=== PATIENT | female | born 1950 | race African-American/Black ===

== ENCOUNTER 2023-01-20 10:49 | Inpatient (IN) | payer MEDICARE, MEDICAID ==
[~2023-01-20] VITALS: Ht 165.1 cm; Wt 63.5 kg
[2023-01-20] VITALS (20 sets, daily range): BP systolic 105–186; BP diastolic 40–77
[~2023-01-20 10:49] MED LIST: ETOMIDATE 2MG/ML 10ML VIAL IV ONE; SODIUM CHLORIDE 0.9% 10ML VIAL ONE; VECURONIUM BROMIDE 10 MG/VIAL IV ONE
[2023-01-20] MEDS ORDERED: ONDANSETRON HCL 4MG/2ML INJ IV STA (11:33)
[2023-01-20 12:26] LABS: HEMATOCRIT. 31.4 % (36.0-48.0); HEMOGLOBIN. 9.8 g/dL (12.0-16.0); MEAN CORPUSCULAR HEMOGLOBIN 19.4 pg (28.0-32.0); MEAN CORPUSCULAR VOLUME 62.3 fL (81.0-99.0); MEAN PLATELET VOLUME 8.8 fl (7.4-10.4); PLATELET 238 x1000/uL (130-400); RED BLOOD CELL COUNT 5.04 mill/uL (4.2-5.4); RED CELL DISTRIBUTION WIDTH 16.8 % (11.6-14.6)
[2023-01-20 12:34] LABS: CHLORIDE 109 mEq/L (98-107)
[2023-01-20] MEDS ORDERED: LEVETIRACETAM 1000MG PREMIX 100 ML IV ONE (12:45)
[2023-01-20] MEDS ORDERED: DEXAMETHASONE 10 MG/ML VIAL IV ONE (12:45)
[2023-01-20 12:49] LABS: ETHANOL BLOOD < 10 mg/dL
[2023-01-20] MEDS ORDERED: MANNITOL 20% 350 ML IV NR (13:00)
[2023-01-20] MEDS ORDERED: MIDAZOLAM HCL 100 MG in DEXT 5% WATER 80 ML IV ONE ×2 (13:00→14:45)
[2023-01-20] MEDS ORDERED: MIDAZOLAM HCL 100 MG in SODIUM CHLORIDE 0.9% 100 ML IV NR (13:15)
[2023-01-20 13:26] LABS: NUCLEATED RED BLOOD CELLS 1 /100 WBC
[2023-01-20 13:27] LABS: PLATELET ESTIMATE NORMAL
[2023-01-20] MEDS ORDERED: NALOXONE HCL 0.4MG/ML VIAL IV PRN (13:30)
[2023-01-20] MEDS ORDERED: NICARDIPINE 40MG/200ML PREMIX 200 ML IV PRN (13:30)
[2023-01-20] MEDS ORDERED: MORPHINE SULFATE 2 MG/ML CPJ (NOT FOR IM USE) IV PRN ×2 (13:30→17:30)
[2023-01-20] MEDS ORDERED: NICARDIPINE 100 MG in SODIUM CHLORIDE 0.9% 60 ML IV PRN ×5 (13:30→19:15)
[2023-01-20 14:02] LABS: PROTHROMBIN TIME 10.6 sec (9.6-11.0)
[2023-01-20] MEDS ORDERED: ONDANSETRON HCL 4MG/2ML INJ IV PRN (14:30)
[2023-01-20] MEDS ORDERED: POTASSIUM CHLORIDE INJ 40 MEQ in DEXT 5% WATER 250 ML IV SCH (14:30)
[2023-01-20] MEDS ORDERED: BISACODYL 10MG SUPP PR SCH (14:30)
[2023-01-20] MEDS ORDERED: KCL 20MEQ/100ML X 2 FOR TOTAL KCL 40MEQ/200ML IV SCH (15:00)
[2023-01-20] MEDS ORDERED: THROMBIN (BOVINE) 5000 UNITS/VIAL TOP ONE (15:35)
[2023-01-20] MEDS ORDERED: LIDOCAINE HCL 1%/EPI 1:200,000 30 ML VIAL ONE (15:35)
[2023-01-20] MEDS ORDERED: GENTAMICIN SULF 40MG/ML 2ML VIAL ONE (15:36)
[2023-01-20] MEDS ORDERED: BACITRACIN 15GM TUBE TOP ONE (15:36)
[2023-01-20] MEDS: PIPERACILLIN/TAZOBACTAM 3.375 G in DEXTROSE 5% WATER 50 ML IV SCH ×2 (15:37→22:58)
[2023-01-20] MEDS ORDERED: IOHEXOL-300 100 ML BOTTLE ONE (15:37)
[2023-01-20] MEDS ORDERED: VECURONIUM BROMIDE 10 MG/VIAL IV ONE (17:02)
[2023-01-20] MEDS ORDERED: PROPOFOL 200MG/20ML VIAL IV ONE (17:28)
[2023-01-20] MEDS ORDERED: MIDAZOLAM HCL 2 MG/2 ML VIAL ONE (17:32)
[2023-01-20] MEDS ORDERED: FENTANYL CITRATE/PF 50MCG/ML 2ML VIAL ONE (17:32)
[2023-01-20] MEDS ORDERED: PROPOFOL 10MG/ML 100ML 100 ML IV PRN (19:15)
[2023-01-20] MEDS: NICARDIPINE 100 MG in SODIUM CHLORIDE 0.9% 60 ML IV PRN (20:15)
[2023-01-20] MEDS: DEXAMETHASONE 4MG/ML 1ML VIAL IV SCH (20:16)
[2023-01-20] MEDS: PROPOFOL 10MG/ML 100ML 100 ML IV PRN (20:16)
[2023-01-20] MEDS: DEXT 5%/LACTATED RINGERS 1,000 ML IV SCH (20:17)
[2023-01-20 20:22] LABS: BG BASE EXCESS -1.1 mmol/L (-2.0-2.0); BG CARBOXYHEMOGLOBIN 0.7 % (0.5-1.5); BG DEOXYHEMOGLOBIN 3.1 % (0.0-5.0); BG FRACTION INSPIRED OXYGEN 40; BG HCO3 ACT 23.1 mmol/L (22.0-26.0); BG METHEMOGLOBIN 0.2 % (0.0-1.5); BG OXYGEN SATURATION 96.9 % (92.0-98.5); BG PCO2 36.5 mmHg (35.0-45.0); BG PH 7.419 (7.350-7.450); BG PO2 93.9 mmHg (75.0-100.0); BG SAMPLE SITE LEFT RADIAL; BG VENT MODE VENT - AC
[2023-01-20] MEDS ORDERED: LEVETIRACETAM 500MG PREMIX 100 ML IV SCH (21:00)
[2023-01-20] MEDS ORDERED: CEFAZOLIN 1000MG PREMIX 50 ML IV SCH (22:00)
[2023-01-21] VITALS (95 sets, daily range): BP systolic 106–149; BP diastolic 42–70
[2023-01-21] MEDS: DEXAMETHASONE 4MG/ML 1ML VIAL IV SCH ×5 (00:11→23:45)
[2023-01-21] MEDS: PROPOFOL 10MG/ML 100ML 100 ML IV PRN ×5 (02:31→23:45)
[2023-01-21 05:23] LABS: CHLORIDE 110 mEq/L (98-107)
[2023-01-21 05:33] LABS: HEMATOCRIT. 30.4 % (36.0-48.0); HEMOGLOBIN. 9.8 g/dL (12.0-16.0); MEAN CORPUSCULAR HEMOGLOBIN 19.7 pg (28.0-32.0); MEAN CORPUSCULAR VOLUME 61.1 fL (81.0-99.0); MEAN PLATELET VOLUME 8.9 fl (7.4-10.4); PLATELET 257 x1000/uL (130-400); RED BLOOD CELL COUNT 4.98 mill/uL (4.2-5.4); RED CELL DISTRIBUTION WIDTH 16.9 % (11.6-14.6)
[2023-01-21] MEDS: PIPERACILLIN/TAZOBACTAM 3.375 G in DEXTROSE 5% WATER 50 ML IV SCH ×3 (06:13→22:29)
[2023-01-21 08:41] LABS: BG BASE EXCESS -0.6 mmol/L (-2.0-2.0); BG DEOXYHEMOGLOBIN 1.7 % (0.0-5.0); BG FRACTION INSPIRED OXYGEN 40; BG HCO3 ACT 22.6 mmol/L (22.0-26.0); BG METHEMOGLOBIN 0.4 % (0.0-1.5); BG OXYGEN SATURATION 98.3 % (92.0-98.5); BG OXYHEMOGLOBIN 97.9 % (94.0-97.0); BG PH 7.467 (7.350-7.450); BG PO2 141.4 mmHg (75.0-100.0); BG SAMPLE SITE ALINE; BG TOTAL HEMOGLOBIN 10.2 g/dL (12.0-18.0); BG VENT MODE VENT - AC
[2023-01-21] MEDS: PANTOPRAZOLE SODIUM 40 MG/VIAL IV SCH (09:55)
[2023-01-21] MEDS: LEVETIRACETAM 500MG PREMIX 100 ML IV SCH ×2 (09:55→22:29)
[2023-01-21 11:28] LABS: PLATELET ESTIMATE NORMAL
[2023-01-21] MEDS ORDERED: POTASSIUM CHLORIDE INJ 40 MEQ in DEXT 5% WATER 250 ML IV ONE (11:30)
[2023-01-21] MEDS: KCL 20MEQ/100ML X 2 FOR TOTAL KCL 40MEQ/200ML IV SCH ×2 (12:19→15:45)
[2023-01-21] MEDS: NICARDIPINE 100 MG in SODIUM CHLORIDE 0.9% 60 ML IV PRN ×2 (17:55→23:45)
[2023-01-21] MEDS: DEXT 5%/LACTATED RINGERS 1,000 ML IV SCH ×2 (17:56→22:29)
[2023-01-22] VITALS (97 sets, daily range): BP systolic 88–148; BP diastolic 41–171
[2023-01-22 05:37] LABS: HEMATOCRIT. 29.3 % (36.0-48.0); HEMOGLOBIN. 9.3 g/dL (12.0-16.0); MEAN CORPUSCULAR HEMOGLOBIN 19.5 pg (28.0-32.0); MEAN CORPUSCULAR VOLUME 61.4 fL (81.0-99.0); MEAN PLATELET VOLUME 9.2 fl (7.4-10.4); PLATELET 260 x1000/uL (130-400); RED BLOOD CELL COUNT 4.78 mill/uL (4.2-5.4); RED CELL DISTRIBUTION WIDTH 17.1 % (11.6-14.6)
[2023-01-22 05:41] LABS: CHLORIDE 108 mEq/L (98-107)
[2023-01-22] MEDS: PROPOFOL 10MG/ML 100ML 100 ML IV PRN ×3 (06:00→18:25)
[2023-01-22] MEDS: PIPERACILLIN/TAZOBACTAM 3.375 G in DEXTROSE 5% WATER 50 ML IV SCH ×3 (07:03→21:24)
[2023-01-22] MEDS: DEXAMETHASONE 4MG/ML 1ML VIAL IV SCH ×3 (07:03→17:18)
[2023-01-22] MEDS: LEVETIRACETAM 500MG PREMIX 100 ML IV SCH ×2 (08:14→21:24)
[2023-01-22] MEDS: PANTOPRAZOLE SODIUM 40 MG/VIAL IV SCH (08:14)
[2023-01-22 09:59] LABS: PLATELET ESTIMATE NORMAL
[2023-01-22] MEDS ORDERED: DEXTROSE 50% WATER 50ML SYRINGE IV PRN (11:00)
[2023-01-22] MEDS: BLOOD SUGAR DIAGNOSTIC STRIP TEST SCH ×3 (11:13→21:24)
[2023-01-22] MEDS: LACTATED RINGERS 1,000 ML IV SCH (11:20)
[2023-01-22] MEDS: INSULIN LISPRO 100 UNITS/ML SUBCUT SCH ×3 (11:20→21:24)
[2023-01-22] MEDS: NICARDIPINE 100 MG in SODIUM CHLORIDE 0.9% 60 ML IV PRN (13:31)
[2023-01-23] VITALS (97 sets, daily range): BP systolic 96–163; BP diastolic 40–71
[2023-01-23] MEDS: NICARDIPINE 100 MG in SODIUM CHLORIDE 0.9% 60 ML IV PRN ×3 (00:11→18:25)
[2023-01-23] MEDS: PROPOFOL 10MG/ML 100ML 100 ML IV PRN ×3 (05:10→20:23)
[2023-01-23] MEDS: LACTATED RINGERS 1,000 ML IV SCH ×2 (05:11→20:23)
[2023-01-23 05:30] LABS: BASOPHILS % 0.3 % (0.0-2.0); HEMATOCRIT. 29.2 % (36.0-48.0); HEMOGLOBIN. 9.5 g/dL (12.0-16.0); LYMPHOCYTES % 8.7 % (20.0-50.0); MEAN CORPUSCULAR VOLUME 61.3 fL (81.0-99.0); MEAN PLATELET VOLUME 9.1 fl (7.4-10.4); MONOCYTES % 3.2 % (2.0-8.0); NEUTROPHILS % 87.8 % (40.0-76.0); PLATELET 263 x1000/uL (130-400); RED BLOOD CELL COUNT 4.76 mill/uL (4.2-5.4); RED CELL DISTRIBUTION WIDTH 17.1 % (11.6-14.6)
[2023-01-23 05:40] LABS: CHLORIDE 112 mEq/L (98-107)
[2023-01-23] MEDS: BLOOD SUGAR DIAGNOSTIC STRIP TEST SCH ×4 (06:40→20:12)
[2023-01-23] MEDS: PIPERACILLIN/TAZOBACTAM 3.375 G in DEXTROSE 5% WATER 50 ML IV SCH ×3 (06:40→21:11)
[2023-01-23] MEDS: INSULIN LISPRO 100 UNITS/ML SUBCUT SCH ×4 (06:40→20:24)
[2023-01-23] MEDS: LEVETIRACETAM 500MG PREMIX 100 ML IV SCH ×2 (09:17→20:24)
[2023-01-23] MEDS: PANTOPRAZOLE SODIUM 40 MG/VIAL IV SCH (09:17)
[2023-01-23] MEDS: LOSARTAN POTASSIUM 100 MG TABLET PO SCH (18:23)
[2023-01-24] VITALS (93 sets, daily range): BP systolic 92–166; BP diastolic 41–69
[2023-01-24] MEDS: PROPOFOL 10MG/ML 100ML 100 ML IV PRN ×3 (04:59→22:25)
[2023-01-24] MEDS: PIPERACILLIN/TAZOBACTAM 3.375 G in DEXTROSE 5% WATER 50 ML IV SCH ×3 (05:00→22:17)
[2023-01-24 05:31] LABS: BASOPHILS % 0.1 % (0.0-2.0); HEMATOCRIT. 27.5 % (36.0-48.0); HEMOGLOBIN. 8.9 g/dL (12.0-16.0); LYMPHOCYTES % 10.1 % (20.0-50.0); MEAN CORPUSCULAR HEMOGLOBIN 19.8 pg (28.0-32.0); MEAN CORPUSCULAR VOLUME 61.3 fL (81.0-99.0); MEAN PLATELET VOLUME 8.9 fl (7.4-10.4); MONOCYTES % 4.7 % (2.0-8.0); NEUTROPHILS % 85.1 % (40.0-76.0); PLATELET 232 x1000/uL (130-400); RED BLOOD CELL COUNT 4.48 mill/uL (4.2-5.4)
[2023-01-24] MEDS: BLOOD SUGAR DIAGNOSTIC STRIP TEST SCH ×4 (06:23→21:42)
[2023-01-24] MEDS: INSULIN LISPRO 100 UNITS/ML SUBCUT SCH ×4 (06:24→20:40)
[2023-01-24 06:57] LABS: CHLORIDE 116 mEq/L (98-107)
[2023-01-24] MEDS: LOSARTAN POTASSIUM 100 MG TABLET PO SCH (08:11)
[2023-01-24] MEDS: LEVETIRACETAM 500MG PREMIX 100 ML IV SCH ×2 (08:11→20:36)
[2023-01-24] MEDS: PANTOPRAZOLE SODIUM 40 MG/VIAL IV SCH (08:11)
[2023-01-24] MEDS ORDERED: HYDRALAZINE HCL 100MG TABLET PO NR (08:45)
[2023-01-24] MEDS: HYDRALAZINE HCL 100MG TABLET PO SCH ×2 (13:45→22:17)
[2023-01-24] MEDS: SODIUM CHLORIDE 0.45% 1,000 ML IV SCH (13:55)
[2023-01-24] MEDS: NICARDIPINE 100 MG in SODIUM CHLORIDE 0.9% 60 ML IV PRN (18:52)
[2023-01-25] VITALS (91 sets, daily range): BP systolic 84–182; BP diastolic 42–69
[2023-01-25] MEDS: PIPERACILLIN/TAZOBACTAM 3.375 G in DEXTROSE 5% WATER 50 ML IV SCH (05:40)
[2023-01-25] MEDS: HYDRALAZINE HCL 100MG TABLET PO SCH ×3 (05:40→21:08)
[2023-01-25] MEDS: NICARDIPINE 100 MG in SODIUM CHLORIDE 0.9% 60 ML IV PRN ×2 (05:41→17:30)
[2023-01-25] MEDS: SODIUM CHLORIDE 0.45% 1,000 ML IV SCH ×2 (05:41→21:08)
[2023-01-25 05:42] LABS: BASOPHILS % 0.2 % (0.0-2.0); EOSINOPHILS % 0.1 % (0.0-5.0); HEMATOCRIT. 28.9 % (36.0-48.0); HEMOGLOBIN. 9.3 g/dL (12.0-16.0); LYMPHOCYTES % 18.1 % (20.0-50.0); MEAN CORPUSCULAR HEMOGLOBIN 19.7 pg (28.0-32.0); MEAN PLATELET VOLUME 8.5 fl (7.4-10.4); MONOCYTES % 5.8 % (2.0-8.0); NEUTROPHILS % 75.8 % (40.0-76.0); PLATELET 223 x1000/uL (130-400); RED BLOOD CELL COUNT 4.74 mill/uL (4.2-5.4); RED CELL DISTRIBUTION WIDTH 16.7 % (11.6-14.6)
[2023-01-25] MEDS: BLOOD SUGAR DIAGNOSTIC STRIP TEST SCH ×4 (05:42→21:00)
[2023-01-25] MEDS: INSULIN LISPRO 100 UNITS/ML SUBCUT SCH ×4 (05:42→21:00)
[2023-01-25 06:19] LABS: CHLORIDE 112 mEq/L (98-107)
[2023-01-25] MEDS: PANTOPRAZOLE SODIUM 40 MG/VIAL IV SCH (08:01)
[2023-01-25] MEDS: LEVETIRACETAM 500MG PREMIX 100 ML IV SCH ×2 (08:02→21:08)
[2023-01-25] MEDS: LOSARTAN POTASSIUM 100 MG TABLET PO SCH (08:02)
[2023-01-25] MEDS: PROPOFOL 10MG/ML 100ML 100 ML IV PRN ×2 (09:31→17:31)
[2023-01-25] MEDS ORDERED: POTASSIUM CHLORIDE 20MEQ TABLET SR PO NR (12:00)
[2023-01-25] MEDS: CLONIDINE 0.1MG TABLET PO SCH ×2 (13:08→21:08)
[2023-01-26] VITALS (99 sets, daily range): BP systolic 76–168; BP diastolic 40–77
[2023-01-26] MEDS: PROPOFOL 10MG/ML 100ML 100 ML IV PRN ×3 (03:32→18:47)
[2023-01-26] MEDS: INSULIN LISPRO 100 UNITS/ML SUBCUT SCH ×3 (05:27→17:00)
[2023-01-26] MEDS: BLOOD SUGAR DIAGNOSTIC STRIP TEST SCH ×3 (05:27→17:13)
[2023-01-26] MEDS: HYDRALAZINE HCL 100MG TABLET PO SCH ×3 (05:42→21:17)
[2023-01-26] MEDS: CLONIDINE 0.1MG TABLET PO SCH (05:42)
[2023-01-26 05:50] LABS: BASOPHILS % 0.1 % (0.0-2.0); EOSINOPHILS % 0.6 % (0.0-5.0); HEMATOCRIT. 27.5 % (36.0-48.0); HEMOGLOBIN. 8.9 g/dL (12.0-16.0); LYMPHOCYTES % 18.7 % (20.0-50.0); MEAN CORPUSCULAR HEMOGLOBIN 19.8 pg (28.0-32.0); MEAN CORPUSCULAR VOLUME 61.5 fL (81.0-99.0); MEAN PLATELET VOLUME 8.4 fl (7.4-10.4); MONOCYTES % 5.3 % (2.0-8.0); NEUTROPHILS % 75.3 % (40.0-76.0); PLATELET 197 x1000/uL (130-400); RED BLOOD CELL COUNT 4.47 mill/uL (4.2-5.4); RED CELL DISTRIBUTION WIDTH 16.5 % (11.6-14.6)
[2023-01-26 07:42] LABS: CHLORIDE 112 mEq/L (98-107)
[2023-01-26] MEDS: LEVETIRACETAM 500MG PREMIX 100 ML IV SCH ×2 (08:09→20:41)
[2023-01-26] MEDS: LOSARTAN POTASSIUM 100 MG TABLET PO SCH (08:09)
[2023-01-26] MEDS: PANTOPRAZOLE SODIUM 40 MG/VIAL IV SCH (08:09)
[2023-01-26] MEDS: NICARDIPINE 100 MG in SODIUM CHLORIDE 0.9% 60 ML IV PRN (08:10)
[2023-01-26] MEDS: ACETAMINOPHEN 325MG TABLET PO PRN (13:16)
[2023-01-26] MEDS: CLONIDINE 0.2MG TABLET PO SCH ×2 (13:16→21:17)
[2023-01-26] MEDS: SODIUM CHLORIDE 0.45% 1,000 ML IV SCH (14:58)
[2023-01-26] MEDS: SENNOSIDES/DOCUSATE SOD 8.6/50MG TABLET PO SCH (21:17)
[2023-01-27] VITALS (87 sets, daily range): BP systolic 74–163; BP diastolic 46–159
[2023-01-27] MEDS: INSULIN LISPRO 100 UNITS/ML SUBCUT SCH ×4 (00:35→17:34)
[2023-01-27] MEDS: PROPOFOL 10MG/ML 100ML 100 ML IV PRN ×2 (01:59→08:58)
[2023-01-27 05:42] LABS: BASOPHILS % 0.1 % (0.0-2.0); EOSINOPHILS % 0.7 % (0.0-5.0); HEMATOCRIT. 26.1 % (36.0-48.0); HEMOGLOBIN. 8.5 g/dL (12.0-16.0); MEAN CORPUSCULAR VOLUME 61.7 fL (81.0-99.0); MEAN PLATELET VOLUME 8.6 fl (7.4-10.4); MONOCYTES % 6.1 % (2.0-8.0); NEUTROPHILS % 78.1 % (40.0-76.0); PLATELET 183 x1000/uL (130-400); RED BLOOD CELL COUNT 4.23 mill/uL (4.2-5.4); RED CELL DISTRIBUTION WIDTH 16.1 % (11.6-14.6)
[2023-01-27] MEDS: CLONIDINE 0.2MG TABLET PO SCH ×3 (05:53→22:15)
[2023-01-27] MEDS: HYDRALAZINE HCL 100MG TABLET PO SCH ×3 (05:53→22:15)
[2023-01-27] MEDS: BLOOD SUGAR DIAGNOSTIC STRIP TEST SCH ×4 (06:00→17:34)
[2023-01-27 06:14] LABS: FERRITIN 233 ng/mL (10-291)
[2023-01-27 06:27] LABS: VITAMIN B12 SERUM 1236 pg/mL (211-911)
[2023-01-27 07:51] LABS: CHLORIDE 108 mEq/L (98-107)
[2023-01-27 08:08] LABS: TOTAL IRON BINDING CAPACITY 161 ug/dL (250-450)
[2023-01-27] MEDS: BISACODYL 5MG TABLET PO SCH (08:50)
[2023-01-27] MEDS: LOSARTAN POTASSIUM 100 MG TABLET PO SCH (08:56)
[2023-01-27] MEDS: POLYETHYLENE GLYCOL 3350 (17GM) 1 DOSE PACK PO SCH (08:56)
[2023-01-27] MEDS: PANTOPRAZOLE SODIUM 40 MG/VIAL IV SCH ×2 (08:56→20:26)
[2023-01-27] MEDS: LEVETIRACETAM 500MG PREMIX 100 ML IV SCH ×2 (08:56→20:26)
[2023-01-27] MEDS: SODIUM CHLORIDE 0.45% 1,000 ML IV SCH (08:57)
[2023-01-27] MEDS: SENNOSIDES/DOCUSATE SOD 8.6/50MG TABLET PO SCH (20:27)
[2023-01-27] MEDS: METOPROLOL TARTRATE 25MG TABLET NG SCH (20:27)
[2023-01-28] VITALS (77 sets, daily range): BP systolic 79–191; BP diastolic 42–112
[2023-01-28 05:28] LABS: BASOPHILS % 0.4 % (0.0-2.0); EOSINOPHILS % 0.8 % (0.0-5.0); HEMATOCRIT. 24.3 % (36.0-48.0); HEMOGLOBIN. 7.8 g/dL (12.0-16.0); LYMPHOCYTES % 15.4 % (20.0-50.0); MEAN CORPUSCULAR HEMOGLOBIN 19.9 pg (28.0-32.0); MEAN CORPUSCULAR VOLUME 61.8 fL (81.0-99.0); MEAN PLATELET VOLUME 8.9 fl (7.4-10.4); MONOCYTES % 7.2 % (2.0-8.0); NEUTROPHILS % 76.2 % (40.0-76.0); PLATELET 180 x1000/uL (130-400); RED BLOOD CELL COUNT 3.93 mill/uL (4.2-5.4); RED CELL DISTRIBUTION WIDTH 15.9 % (11.6-14.6)
[2023-01-28 05:35] LABS: CHLORIDE 107 mEq/L (98-107)
[2023-01-28] MEDS: CLONIDINE 0.2MG TABLET PO SCH ×3 (06:00→21:05)
[2023-01-28] MEDS: HYDRALAZINE HCL 100MG TABLET PO SCH ×3 (06:00→21:05)
[2023-01-28] MEDS: INSULIN LISPRO 100 UNITS/ML SUBCUT SCH ×5 (06:00→23:49)
[2023-01-28] MEDS: BLOOD SUGAR DIAGNOSTIC STRIP TEST SCH ×5 (06:00→23:49)
[2023-01-28 07:13] LABS: BG BASE EXCESS -1.8 mmol/L (-2.0-2.0); BG CARBOXYHEMOGLOBIN 0.9 % (0.5-1.5); BG DEOXYHEMOGLOBIN 2.1 % (0.0-5.0); BG FRACTION INSPIRED OXYGEN 30; BG HCO3 ACT 21.6 mmol/L (22.0-26.0); BG METHEMOGLOBIN 0.3 % (0.0-1.5); BG OXYGEN SATURATION 97.9 % (92.0-98.5); BG OXYHEMOGLOBIN 96.7 % (94.0-97.0); BG PEEP (cmH2O) 0 cmH2O; BG PH 7.461 (7.350-7.450); BG SAMPLE SITE ALINE; BG TOTAL HEMOGLOBIN 8.2 g/dL (12.0-18.0); BG VENT MODE VENT - AC/VC
[2023-01-28] MEDS: PANTOPRAZOLE SODIUM 40 MG/VIAL IV SCH ×2 (08:28→21:06)
[2023-01-28] MEDS: LEVETIRACETAM 500MG PREMIX 100 ML IV SCH ×2 (08:28→21:05)
[2023-01-28] MEDS: SODIUM CHLORIDE 0.45% 1,000 ML IV SCH ×2 (08:29→18:44)
[2023-01-28] MEDS: METOPROLOL TARTRATE 25MG TABLET NG SCH ×3 (09:00→21:10)
[2023-01-28] MEDS: BISACODYL 5MG TABLET PO SCH (09:00)
[2023-01-28] MEDS: LOSARTAN POTASSIUM 100 MG TABLET PO SCH (15:12)
[2023-01-28] MEDS: POLYETHYLENE GLYCOL 3350 (17GM) 1 DOSE PACK PO SCH (15:12)
[2023-01-28] MEDS ORDERED: LIDOCAINE HCL/EPINEPHRINE 1%-EPI 1:100,000 20 ML VIAL ONE (17:18)
[2023-01-28] MEDS ORDERED: ROCURONIUM BROMIDE 10MG/ML VIAL 5ML IV ONE (19:20)
[2023-01-28] MEDS: SENNOSIDES/DOCUSATE SOD 8.6/50MG TABLET PO SCH (22:38)
[2023-01-28] MEDS: ACETAMINOPHEN 325MG TABLET PO PRN (23:49)
[2023-01-29] VITALS (95 sets, daily range): BP systolic 93–157; BP diastolic 45–97
[2023-01-29 05:30] LABS: BASOPHILS % 0.3 % (0.0-2.0); EOSINOPHILS % 0.4 % (0.0-5.0); HEMATOCRIT. 27.6 % (36.0-48.0); HEMOGLOBIN. 8.7 g/dL (12.0-16.0); LYMPHOCYTES % 12.4 % (20.0-50.0); MEAN CORPUSCULAR HEMOGLOBIN 19.6 pg (28.0-32.0); MEAN CORPUSCULAR VOLUME 62.2 fL (81.0-99.0); MEAN PLATELET VOLUME 8.9 fl (7.4-10.4); NEUTROPHILS % 79.9 % (40.0-76.0); PLATELET 206 x1000/uL (130-400); RED BLOOD CELL COUNT 4.43 mill/uL (4.2-5.4); RED CELL DISTRIBUTION WIDTH 16.2 % (11.6-14.6)
[2023-01-29] MEDS: HYDRALAZINE HCL 100MG TABLET PO SCH ×3 (05:32→21:05)
[2023-01-29] MEDS: INSULIN LISPRO 100 UNITS/ML SUBCUT SCH ×4 (05:33→23:20)
[2023-01-29] MEDS: CLONIDINE 0.2MG TABLET PO SCH ×3 (05:33→21:05)
[2023-01-29] MEDS: BLOOD SUGAR DIAGNOSTIC STRIP TEST SCH ×4 (05:33→23:21)
[2023-01-29 05:46] LABS: PROTHROMBIN TIME 10.7 sec (9.6-11.0)
[2023-01-29 06:00] LABS: CHLORIDE 109 mEq/L (98-107)
[2023-01-29] MEDS: ACETAMINOPHEN 325MG TABLET PO PRN ×2 (06:04→20:13)
[2023-01-29] MEDS: POLYETHYLENE GLYCOL 3350 (17GM) 1 DOSE PACK PO SCH ×2 (09:00→13:14)
[2023-01-29] MEDS: BISACODYL 5MG TABLET PO SCH (09:00)
[2023-01-29] MEDS: LEVETIRACETAM 500MG PREMIX 100 ML IV SCH ×2 (09:31→20:12)
[2023-01-29] MEDS: PANTOPRAZOLE SODIUM 40 MG/VIAL IV SCH ×2 (09:31→20:12)
[2023-01-29] MEDS: METOPROLOL TARTRATE 25MG TABLET NG SCH ×2 (09:32→20:13)
[2023-01-29] MEDS: LOSARTAN POTASSIUM 100 MG TABLET PO SCH (09:32)
[2023-01-29] MEDS: SODIUM CHLORIDE 0.45% 1,000 ML IV SCH ×2 (09:34→23:21)
[2023-01-29] MEDS ORDERED: CEFAZOLIN 1000MG PREMIX 50 ML IV NR (11:00)
[2023-01-29] MEDS ORDERED: EPHEDRINE SULFATE 50MG/ML VIAL ONE (11:26)
[2023-01-29] MEDS ORDERED: PHENYLEPHRINE HCL 10 MG/ML 1ML (IV VIAL) IV ONE (11:26)
[2023-01-29] MEDS ORDERED: ROCURONIUM BROMIDE 10MG/ML VIAL 5ML IV ONE (11:26)
[2023-01-29] MEDS ORDERED: MIDAZOLAM HCL 5 MG/5 ML VIAL ONE (11:26)
[2023-01-29] MEDS ORDERED: PROPOFOL 200MG/20ML VIAL IV ONE (11:26)
[2023-01-29] MEDS ORDERED: SODIUM CHLORIDE 0.9% 10ML VIAL ONE (11:27)
[2023-01-29] MEDS ORDERED: MORPHINE SULFATE 2 MG/ML CPJ (NOT FOR IM USE) IV PRN (12:45)
[2023-01-29] MEDS ORDERED: NALOXONE HCL 0.4MG/ML VIAL IV PRN (12:45)
[2023-01-29] MEDS: SENNOSIDES/DOCUSATE SOD 8.6/50MG TABLET PO SCH (20:13)
[2023-01-30] VITALS (11 sets, daily range): BP systolic 97–125; BP diastolic 47–68
[2023-01-30] MEDS: INSULIN LISPRO 100 UNITS/ML SUBCUT SCH ×4 (05:34→23:22)
[2023-01-30] MEDS: BLOOD SUGAR DIAGNOSTIC STRIP TEST SCH ×4 (05:34→23:22)
[2023-01-30] MEDS: HYDRALAZINE HCL 100MG TABLET PO SCH ×3 (05:34→20:35)
[2023-01-30] MEDS: CLONIDINE 0.2MG TABLET PO SCH ×3 (05:34→20:35)
[2023-01-30 05:46] LABS: BASOPHILS % 0.1 % (0.0-2.0); EOSINOPHILS % 0.9 % (0.0-5.0); HEMATOCRIT. 25.6 % (36.0-48.0); HEMOGLOBIN. 8.1 g/dL (12.0-16.0); LYMPHOCYTES % 11.5 % (20.0-50.0); MEAN CORPUSCULAR HEMOGLOBIN 19.8 pg (28.0-32.0); MEAN CORPUSCULAR VOLUME 62.6 fL (81.0-99.0); MEAN PLATELET VOLUME 8.6 fl (7.4-10.4); MONOCYTES % 9.9 % (2.0-8.0); NEUTROPHILS % 77.6 % (40.0-76.0); PLATELET 235 x1000/uL (130-400); RED CELL DISTRIBUTION WIDTH 16.7 % (11.6-14.6)
[2023-01-30 07:05] LABS: CHLORIDE 108 mEq/L (98-107)
[2023-01-30] MEDS: BISACODYL 5MG TABLET PO SCH (09:00)
[2023-01-30] MEDS: LOSARTAN POTASSIUM 100 MG TABLET PO SCH (09:00)
[2023-01-30] MEDS: POLYETHYLENE GLYCOL 3350 (17GM) 1 DOSE PACK PO SCH (09:00)
[2023-01-30] MEDS: METOPROLOL TARTRATE 25MG TABLET NG SCH ×2 (09:00→20:34)
[2023-01-30] MEDS: PANTOPRAZOLE SODIUM 40 MG/VIAL IV SCH ×2 (09:16→20:34)
[2023-01-30] MEDS: LEVETIRACETAM 500MG PREMIX 100 ML IV SCH (09:16)
[2023-01-30] MEDS ORDERED: POTASSIUM CHLORIDE 20MEQ TABLET SR PO NR (12:30)
[2023-01-30] MEDS: RISPERIDONE 0.5MG TABLET PO SCH (13:38)
[2023-01-30] MEDS: SODIUM CHLORIDE 0.45% 1,000 ML IV SCH ×2 (17:30→18:39)
[2023-01-30] MEDS: SENNOSIDES/DOCUSATE SOD 8.6/50MG TABLET PO SCH (20:34)
[2023-01-30] MEDS: LEVETIRACETAM 500MG/5ML CUP PO SCH (20:35)
[2023-01-30] MEDS: ACETAMINOPHEN 325MG TABLET PO PRN (20:35)
[2023-01-31] VITALS (13 sets, daily range): BP systolic 87–120; BP diastolic 47–83
[2023-01-31] MEDS: BLOOD SUGAR DIAGNOSTIC STRIP TEST SCH ×4 (05:28→23:25)
[2023-01-31] MEDS: HYDRALAZINE HCL 100MG TABLET PO SCH ×3 (05:28→21:57)
[2023-01-31] MEDS: CLONIDINE 0.2MG TABLET PO SCH ×3 (05:28→21:57)
[2023-01-31] MEDS: INSULIN LISPRO 100 UNITS/ML SUBCUT SCH ×4 (05:29→23:25)
[2023-01-31] MEDS: METOPROLOL TARTRATE 25MG TABLET NG SCH ×2 (08:54→21:57)
[2023-01-31] MEDS: LOSARTAN POTASSIUM 100 MG TABLET PO SCH (08:55)
[2023-01-31] MEDS: LEVETIRACETAM 500MG/5ML CUP PO SCH ×2 (09:33→21:56)
[2023-01-31] MEDS: PANTOPRAZOLE SODIUM 40 MG/VIAL IV SCH ×2 (09:33→21:56)
[2023-01-31] MEDS: BISACODYL 5MG TABLET PO SCH (09:33)
[2023-01-31] MEDS: RISPERIDONE 0.5MG TABLET PO SCH (09:33)
[2023-01-31] MEDS: POLYETHYLENE GLYCOL 3350 (17GM) 1 DOSE PACK PO SCH (09:33)
[2023-01-31] MEDS: SODIUM CHLORIDE 0.45% 1,000 ML IV SCH (12:10)
[2023-01-31] MEDS: SENNOSIDES/DOCUSATE SOD 8.6/50MG TABLET PO SCH (21:57)
[2023-02-01] VITALS (12 sets, daily range): BP systolic 88–126; BP diastolic 46–64
[2023-02-01] MEDS: SODIUM CHLORIDE 0.45% 1,000 ML IV SCH ×2 (05:16→21:52)
[2023-02-01] MEDS: HYDRALAZINE HCL 100MG TABLET PO SCH ×3 (05:16→21:54)
[2023-02-01] MEDS: CLONIDINE 0.2MG TABLET PO SCH ×3 (05:17→21:53)
[2023-02-01] MEDS: BLOOD SUGAR DIAGNOSTIC STRIP TEST SCH ×4 (05:21→23:58)
[2023-02-01] MEDS: INSULIN LISPRO 100 UNITS/ML SUBCUT SCH ×3 (05:21→17:33)
[2023-02-01] MEDS: ACETAMINOPHEN 325MG TABLET PO PRN (05:22)
[2023-02-01] MEDS: POLYETHYLENE GLYCOL 3350 (17GM) 1 DOSE PACK PO SCH (09:00)
[2023-02-01] MEDS: LOSARTAN POTASSIUM 100 MG TABLET PO SCH (09:20)
[2023-02-01] MEDS: RISPERIDONE 0.5MG TABLET PO SCH (09:20)
[2023-02-01] MEDS: BISACODYL 5MG TABLET PO SCH (09:20)
[2023-02-01] MEDS: LEVETIRACETAM 500MG/5ML CUP PO SCH ×2 (09:20→21:52)
[2023-02-01] MEDS: METOPROLOL TARTRATE 25MG TABLET NG SCH ×2 (09:20→21:53)
[2023-02-01] MEDS: PANTOPRAZOLE SODIUM 40 MG/VIAL IV SCH ×2 (09:20→21:52)
[2023-02-01] MEDS: SENNOSIDES/DOCUSATE SOD 8.6/50MG TABLET PO SCH (21:53)
[2023-02-02] VITALS (12 sets, daily range): BP systolic 109–138; BP diastolic 31–93
[2023-02-02] MEDS: INSULIN LISPRO 100 UNITS/ML SUBCUT SCH ×4 (00:35→17:13)
[2023-02-02] MEDS: BLOOD SUGAR DIAGNOSTIC STRIP TEST SCH ×4 (05:53→23:59)
[2023-02-02] MEDS: HYDRALAZINE HCL 100MG TABLET PO SCH ×3 (05:54→21:41)
[2023-02-02] MEDS: CLONIDINE 0.2MG TABLET PO SCH ×3 (05:54→21:41)
[2023-02-02] MEDS: METOPROLOL TARTRATE 25MG TABLET NG SCH (09:00)
[2023-02-02] MEDS: LOSARTAN POTASSIUM 100 MG TABLET PO SCH (09:29)
[2023-02-02] MEDS: POLYETHYLENE GLYCOL 3350 (17GM) 1 DOSE PACK PO SCH (09:29)
[2023-02-02] MEDS: PANTOPRAZOLE SODIUM 40 MG/VIAL IV SCH ×2 (09:29→21:41)
[2023-02-02] MEDS: RISPERIDONE 0.5MG TABLET PO SCH (09:29)
[2023-02-02] MEDS: BISACODYL 5MG TABLET PO SCH (09:29)
[2023-02-02] MEDS: LEVETIRACETAM 500MG/5ML CUP PO SCH ×2 (09:47→21:41)
[2023-02-02] MEDS: SODIUM CHLORIDE 0.45% 1,000 ML IV SCH (13:42)
[2023-02-02 15:45] LABS: BASOPHILS % 0.6 % (0.0-2.0); EOSINOPHILS % 0.7 % (0.0-5.0); HEMATOCRIT. 26.3 % (36.0-48.0); HEMOGLOBIN. 8.5 g/dL (12.0-16.0); LYMPHOCYTES % 15.6 % (20.0-50.0); MEAN CORPUSCULAR HEMOGLOBIN 20.2 pg (28.0-32.0); MEAN CORPUSCULAR VOLUME 62.2 fL (81.0-99.0); MEAN PLATELET VOLUME 8.2 fl (7.4-10.4); MONOCYTES % 6.5 % (2.0-8.0); NEUTROPHILS % 76.6 % (40.0-76.0); PLATELET 302 x1000/uL (130-400); RED BLOOD CELL COUNT 4.22 mill/uL (4.2-5.4); RED CELL DISTRIBUTION WIDTH 16.9 % (11.6-14.6)
[2023-02-02 15:56] LABS: CHLORIDE 107 mEq/L (98-107)
[2023-02-02] MEDS: SENNOSIDES/DOCUSATE SOD 8.6/50MG TABLET PO SCH (21:41)
[2023-02-03] VITALS (12 sets, daily range): BP systolic 100–135; BP diastolic 54–100
[2023-02-03] MEDS: INSULIN LISPRO 100 UNITS/ML SUBCUT SCH ×4 (00:09→17:55)
[2023-02-03] MEDS: HYDRALAZINE HCL 100MG TABLET PO SCH ×3 (05:38→21:33)
[2023-02-03] MEDS: CLONIDINE 0.2MG TABLET PO SCH ×3 (05:38→21:33)
[2023-02-03] MEDS: BLOOD SUGAR DIAGNOSTIC STRIP TEST SCH ×3 (05:38→17:28)
[2023-02-03] MEDS: SODIUM CHLORIDE 0.45% 1,000 ML IV SCH ×2 (05:39→21:50)
[2023-02-03] MEDS: LOSARTAN POTASSIUM 100 MG TABLET PO SCH (08:27)
[2023-02-03] MEDS: RISPERIDONE 0.25MG TABLET PO SCH (08:27)
[2023-02-03] MEDS: BISACODYL 5MG TABLET PO SCH (08:27)
[2023-02-03] MEDS: POLYETHYLENE GLYCOL 3350 (17GM) 1 DOSE PACK PO SCH (08:27)
[2023-02-03] MEDS: LEVETIRACETAM 500MG/5ML CUP PO SCH ×2 (08:27→21:32)
[2023-02-03] MEDS: PANTOPRAZOLE SODIUM 40 MG/VIAL IV SCH ×2 (08:28→21:32)
[2023-02-03] MEDS: ACETAMINOPHEN 650MG/20.3ML UDC PO PRN (21:32)
[2023-02-03] MEDS: SENNOSIDES/DOCUSATE SOD 8.6/50MG TABLET PO SCH (21:33)
[2023-02-04] VITALS (12 sets, daily range): BP systolic 96–147; BP diastolic 45–74
[2023-02-04] MEDS: BLOOD SUGAR DIAGNOSTIC STRIP TEST SCH ×5 (00:25→23:29)
[2023-02-04] MEDS: INSULIN LISPRO 100 UNITS/ML SUBCUT SCH ×5 (00:40→23:39)
[2023-02-04] MEDS: CLONIDINE 0.2MG TABLET PO SCH ×3 (05:23→21:10)
[2023-02-04] MEDS: HYDRALAZINE HCL 100MG TABLET PO SCH ×3 (05:23→21:10)
[2023-02-04 07:01] LABS: BASOPHILS % 0.4 % (0.0-2.0); EOSINOPHILS % 1.5 % (0.0-5.0); HEMATOCRIT. 26.5 % (36.0-48.0); HEMOGLOBIN. 8.6 g/dL (12.0-16.0); LYMPHOCYTES % 14.7 % (20.0-50.0); MEAN CORPUSCULAR HEMOGLOBIN 20.7 pg (28.0-32.0); MEAN CORPUSCULAR VOLUME 63.3 fL (81.0-99.0); MEAN PLATELET VOLUME 8.2 fl (7.4-10.4); MONOCYTES % 8.4 % (2.0-8.0); PLATELET 253 x1000/uL (130-400); RED BLOOD CELL COUNT 4.18 mill/uL (4.2-5.4); RED CELL DISTRIBUTION WIDTH 17.1 % (11.6-14.6)
[2023-02-04 07:36] LABS: CHLORIDE 105 mEq/L (98-107)
[2023-02-04] MEDS: LOSARTAN POTASSIUM 100 MG TABLET PO SCH (08:25)
[2023-02-04] MEDS: LEVETIRACETAM 500MG/5ML CUP PO SCH ×2 (09:52→21:09)
[2023-02-04] MEDS: RISPERIDONE 0.25MG TABLET PO SCH (09:52)
[2023-02-04] MEDS: ACETAMINOPHEN 650MG/20.3ML UDC PO PRN ×2 (09:52→23:37)
[2023-02-04] MEDS: BISACODYL 5MG TABLET PO SCH (09:52)
[2023-02-04] MEDS: PANTOPRAZOLE SODIUM 40 MG/VIAL IV SCH ×2 (09:53→21:10)
[2023-02-04] MEDS: POLYETHYLENE GLYCOL 3350 (17GM) 1 DOSE PACK PO SCH (09:53)
[2023-02-04] MEDS: CEFTRIAXONE 1,000 MG in DEXTROSE 5% WATER 50 ML IV SCH (13:17)
[2023-02-04] MEDS: SODIUM CHLORIDE 0.45% 1,000 ML IV SCH (17:13)
[2023-02-04] MEDS: SENNOSIDES/DOCUSATE SOD 8.6/50MG TABLET PO SCH (21:10)
[2023-02-04 22:39] LABS: CLARITY URINE TURBID (CLEAR); COLOR URINE YELLOW (YELLOW); KETONES URINE NEGATIVE (NEGATIVE); LEUKOCYTE ESTERASE URINE 3+ (NEGATIVE); NITRITE URINE POSITIVE (NEGATIVE); OCCULT BLOOD URINE 1+ (NEGATIVE); PROTEIN URINE 1+ (NEGATIVE); SPECIFIC GRAVITY URINE 1.016 (1.005-1.030)
[2023-02-05] VITALS (18 sets, daily range): BP systolic 84–140; BP diastolic 47–69
[2023-02-05] MEDS: SODIUM CHLORIDE 0.45% 1,000 ML IV SCH ×2 (05:35→22:58)
[2023-02-05] MEDS: CLONIDINE 0.2MG TABLET PO SCH ×3 (05:35→22:00)
[2023-02-05] MEDS: HYDRALAZINE HCL 100MG TABLET PO SCH ×3 (05:35→22:00)
[2023-02-05] MEDS: BLOOD SUGAR DIAGNOSTIC STRIP TEST SCH ×3 (05:35→18:00)
[2023-02-05] MEDS: INSULIN LISPRO 100 UNITS/ML SUBCUT SCH ×3 (05:36→18:00)
[2023-02-05 06:38] LABS: BASOPHILS % 0.7 % (0.0-2.0); EOSINOPHILS % 0.5 % (0.0-5.0); HEMATOCRIT. 27.5 % (36.0-48.0); HEMOGLOBIN. 8.8 g/dL (12.0-16.0); LYMPHOCYTES % 11.3 % (20.0-50.0); MEAN CORPUSCULAR HEMOGLOBIN 20.4 pg (28.0-32.0); MEAN CORPUSCULAR VOLUME 63.5 fL (81.0-99.0); MEAN PLATELET VOLUME 8.5 fl (7.4-10.4); MONOCYTES % 6.8 % (2.0-8.0); NEUTROPHILS % 80.7 % (40.0-76.0); PLATELET 284 x1000/uL (130-400); RED BLOOD CELL COUNT 4.33 mill/uL (4.2-5.4); RED CELL DISTRIBUTION WIDTH 17.8 % (11.6-14.6)
[2023-02-05 08:20] LABS: CHLORIDE 106 mEq/L (98-107)
[2023-02-05] MEDS: BISACODYL 5MG TABLET PO SCH (09:00)
[2023-02-05] MEDS: RISPERIDONE 0.25MG TABLET PO SCH (09:27)
[2023-02-05] MEDS: POLYETHYLENE GLYCOL 3350 (17GM) 1 DOSE PACK PO SCH (09:27)
[2023-02-05] MEDS: PANTOPRAZOLE SODIUM 40 MG/VIAL IV SCH ×2 (09:27→22:22)
[2023-02-05] MEDS: LOSARTAN POTASSIUM 100 MG TABLET PO SCH (09:27)
[2023-02-05] MEDS: LEVETIRACETAM 500MG/5ML CUP PO SCH ×2 (09:27→22:21)
[2023-02-05] MEDS: CEFTRIAXONE 1,000 MG in DEXTROSE 5% WATER 50 ML IV SCH (13:03)
[2023-02-05] MEDS: SENNOSIDES/DOCUSATE SOD 8.6/50MG TABLET PO SCH (21:00)
[2023-02-06] VITALS (12 sets, daily range): BP systolic 83–133; BP diastolic 20–68
[2023-02-06] MEDS: INSULIN LISPRO 100 UNITS/ML SUBCUT SCH ×4 (02:15→17:41)
[2023-02-06] MEDS: BLOOD SUGAR DIAGNOSTIC STRIP TEST SCH ×4 (06:00→17:12)
[2023-02-06] MEDS: HYDRALAZINE HCL 100MG TABLET PO SCH ×3 (06:00→21:36)
[2023-02-06] MEDS: CLONIDINE 0.2MG TABLET PO SCH ×3 (06:00→21:41)
[2023-02-06] MEDS: LEVETIRACETAM 500MG/5ML CUP PO SCH ×2 (08:35→21:36)
[2023-02-06] MEDS: PANTOPRAZOLE SODIUM 40 MG/VIAL IV SCH ×2 (08:35→21:36)
[2023-02-06] MEDS: POLYETHYLENE GLYCOL 3350 (17GM) 1 DOSE PACK PO SCH (08:35)
[2023-02-06] MEDS: RISPERIDONE 0.25MG TABLET PO SCH (08:36)
[2023-02-06] MEDS: BISACODYL 5MG TABLET PO SCH (08:36)
[2023-02-06] MEDS: LOSARTAN POTASSIUM 100 MG TABLET PO SCH (09:00)
[2023-02-06] MEDS: CEFTRIAXONE 1,000 MG in DEXTROSE 5% WATER 50 ML IV SCH (12:11)
[2023-02-06] MEDS: SODIUM CHLORIDE 0.45% 1,000 ML IV SCH (17:42)
[2023-02-06] MEDS: SENNOSIDES/DOCUSATE SOD 8.6/50MG TABLET PO SCH (21:36)
[2023-02-07] VITALS (14 sets, daily range): BP systolic 90–131; BP diastolic 35–66
[2023-02-07] MEDS: INSULIN LISPRO 100 UNITS/ML SUBCUT SCH ×4 (00:34→17:11)
[2023-02-07] MEDS: BLOOD SUGAR DIAGNOSTIC STRIP TEST SCH ×4 (00:34→17:06)
[2023-02-07] MEDS: HYDRALAZINE HCL 100MG TABLET PO SCH ×3 (05:41→22:51)
[2023-02-07] MEDS: CLONIDINE 0.2MG TABLET PO SCH ×3 (05:42→22:52)
[2023-02-07] MEDS: SODIUM CHLORIDE 0.45% 1,000 ML IV SCH (05:42)
[2023-02-07 08:00] LABS: HEMATOCRIT 28.5 % (36.0-48.0); HEMOGLOBIN 9.2 g/dL (12.0-16.0); MEAN CORPUSCULAR VOLUME 62.3 fL (81.0-99.0); PLATELET 308 x1000/uL (130-400); RED BLOOD CELL COUNT 4.58 mill/uL (4.2-5.4); RED CELL DISTRIBUTION WIDTH 18.5 % (11.6-14.6)
[2023-02-07 08:41] LABS: CHLORIDE 103 mEq/L (98-107)
[2023-02-07 08:56] LABS: TOTAL IRON BINDING CAPACITY 205 ug/dL (250-450)
[2023-02-07] MEDS: POLYETHYLENE GLYCOL 3350 (17GM) 1 DOSE PACK PO SCH (09:00)
[2023-02-07] MEDS: BISACODYL 5MG TABLET PO SCH (09:00)
[2023-02-07] MEDS: RISPERIDONE 0.25MG TABLET PO SCH (09:01)
[2023-02-07] MEDS: LEVETIRACETAM 500MG/5ML CUP PO SCH ×2 (09:01→22:54)
[2023-02-07] MEDS: LOSARTAN POTASSIUM 100 MG TABLET PO SCH (09:01)
[2023-02-07] MEDS: PANTOPRAZOLE SODIUM 40 MG/VIAL IV SCH ×2 (09:02→22:49)
[2023-02-07] MEDS: CEFTRIAXONE 1,000 MG in DEXTROSE 5% WATER 50 ML IV SCH (12:17)
[2023-02-07] MEDS ORDERED: LACTULOSE 20G/30ML UDC PO PRN (14:45)
[2023-02-07] MEDS: FERROUS SULFATE 325MG TABLET PO SCH (17:03)
[2023-02-07 20:32] LABS: HEPATITIS B SURFACE ANTIGEN NEGATIVE
[2023-02-07] MEDS: SENNOSIDES/DOCUSATE SOD 8.6/50MG TABLET PO SCH (22:50)
[2023-02-08] VITALS (12 sets, daily range): BP systolic 112–136; BP diastolic 46–76
[2023-02-08] MEDS: BLOOD SUGAR DIAGNOSTIC STRIP TEST SCH ×4 (00:26→18:10)
[2023-02-08] MEDS: INSULIN LISPRO 100 UNITS/ML SUBCUT SCH ×4 (00:37→18:11)
[2023-02-08] MEDS: HYDRALAZINE HCL 100MG TABLET PO SCH ×3 (06:03→21:02)
[2023-02-08] MEDS: CLONIDINE 0.2MG TABLET PO SCH ×3 (06:04→21:02)
[2023-02-08 07:16] LABS: BASOPHILS % 0.7 % (0.0-2.0); EOSINOPHILS % 0.3 % (0.0-5.0); HEMATOCRIT. 27.1 % (36.0-48.0); HEMOGLOBIN. 8.8 g/dL (12.0-16.0); LYMPHOCYTES % 7.9 % (20.0-50.0); MEAN CORPUSCULAR VOLUME 61.7 fL (81.0-99.0); MEAN PLATELET VOLUME 8.1 fl (7.4-10.4); MONOCYTES % 8.2 % (2.0-8.0); NEUTROPHILS % 82.9 % (40.0-76.0); PLATELET 333 x1000/uL (130-400); RED BLOOD CELL COUNT 4.39 mill/uL (4.2-5.4); RED CELL DISTRIBUTION WIDTH 18.3 % (11.6-14.6)
[2023-02-08 07:42] LABS: CHLORIDE 102 mEq/L (98-107)
[2023-02-08] MEDS: LOSARTAN POTASSIUM 100 MG TABLET PO SCH (08:56)
[2023-02-08] MEDS: PANTOPRAZOLE SODIUM 40 MG/VIAL IV SCH ×2 (08:56→20:39)
[2023-02-08] MEDS: FERROUS SULFATE 325MG TABLET PO SCH ×3 (08:56→17:52)
[2023-02-08] MEDS: LEVETIRACETAM 500MG/5ML CUP PO SCH ×2 (08:56→20:39)
[2023-02-08] MEDS: RISPERIDONE 0.25MG TABLET PO SCH (08:56)
[2023-02-08] MEDS ORDERED: CEFTRIAXONE 1 G PREMIX 50 ML IV SCH (12:00)
[2023-02-08] MEDS: CEFTRIAXONE 1,000 MG in DEXTROSE 5% WATER 50 ML IV SCH (12:28)
[2023-02-08] MEDS: SENNOSIDES/DOCUSATE SOD 8.6/50MG TABLET PO SCH (20:39)
[2023-02-09] VITALS (12 sets, daily range): BP systolic 71–137; BP diastolic 38–68
[2023-02-09] MEDS: BLOOD SUGAR DIAGNOSTIC STRIP TEST SCH ×4 (00:50→18:17)
[2023-02-09] MEDS: INSULIN LISPRO 100 UNITS/ML SUBCUT SCH ×4 (00:59→19:17)
[2023-02-09] MEDS: CLONIDINE 0.2MG TABLET PO SCH ×3 (06:00→21:48)
[2023-02-09] MEDS: HYDRALAZINE HCL 100MG TABLET PO SCH ×3 (06:00→21:47)
[2023-02-09 07:30] LABS: BASOPHILS % 1.1 % (0.0-2.0); EOSINOPHILS % 0.9 % (0.0-5.0); HEMATOCRIT. 27.1 % (36.0-48.0); HEMOGLOBIN. 8.7 g/dL (12.0-16.0); LYMPHOCYTES % 8.8 % (20.0-50.0); MEAN CORPUSCULAR HEMOGLOBIN 19.8 pg (28.0-32.0); MEAN CORPUSCULAR VOLUME 62.1 fL (81.0-99.0); MEAN PLATELET VOLUME 7.7 fl (7.4-10.4); MONOCYTES % 7.3 % (2.0-8.0); NEUTROPHILS % 81.9 % (40.0-76.0); PLATELET 337 x1000/uL (130-400); RED BLOOD CELL COUNT 4.37 mill/uL (4.2-5.4); RED CELL DISTRIBUTION WIDTH 18.6 % (11.6-14.6)
[2023-02-09 08:41] LABS: CHLORIDE 103 mEq/L (98-107)
[2023-02-09] MEDS: LOSARTAN POTASSIUM 100 MG TABLET PO SCH (09:00)
[2023-02-09] MEDS: PANTOPRAZOLE SODIUM 40 MG/VIAL IV SCH ×2 (10:11→21:45)
[2023-02-09] MEDS: LEVETIRACETAM 500MG/5ML CUP PO SCH ×2 (10:11→21:45)
[2023-02-09] MEDS: RISPERIDONE 0.25MG TABLET PO SCH (10:12)
[2023-02-09] MEDS: FERROUS SULFATE 325MG TABLET PO SCH ×3 (10:12→18:17)
[2023-02-09] MEDS: ACETAMINOPHEN 325MG TABLET PO PRN (10:12)
[2023-02-09] MEDS: CEFTRIAXONE 1,000 MG in DEXTROSE 5% WATER 50 ML IV SCH (12:51)
[2023-02-09] MEDS: SENNOSIDES/DOCUSATE SOD 8.6/50MG TABLET PO SCH (21:46)
[2023-02-10] VITALS (12 sets, daily range): BP systolic 89–139; BP diastolic 54–76
[2023-02-10] MEDS: INSULIN LISPRO 100 UNITS/ML SUBCUT SCH ×5 (00:38→23:33)
[2023-02-10] MEDS: BLOOD SUGAR DIAGNOSTIC STRIP TEST SCH ×5 (06:00→23:23)
[2023-02-10] MEDS: HYDRALAZINE HCL 100MG TABLET PO SCH ×3 (06:49→23:13)
[2023-02-10] MEDS: CLONIDINE 0.2MG TABLET PO SCH ×3 (06:50→23:16)
[2023-02-10 06:57] LABS: BASOPHILS % 0.8 % (0.0-2.0); EOSINOPHILS % 0.4 % (0.0-5.0); HEMATOCRIT. 27.5 % (36.0-48.0); HEMOGLOBIN. 8.9 g/dL (12.0-16.0); LYMPHOCYTES % 10.2 % (20.0-50.0); MEAN CORPUSCULAR VOLUME 61.9 fL (81.0-99.0); MEAN PLATELET VOLUME 8.4 fl (7.4-10.4); MONOCYTES % 7.7 % (2.0-8.0); NEUTROPHILS % 80.9 % (40.0-76.0); PLATELET 376 x1000/uL (130-400); RED BLOOD CELL COUNT 4.45 mill/uL (4.2-5.4)
[2023-02-10 09:11] LABS: CHLORIDE 102 mEq/L (98-107)
[2023-02-10] MEDS: LEVETIRACETAM 500MG/5ML CUP PO SCH ×2 (09:25→20:51)
[2023-02-10] MEDS: PANTOPRAZOLE SODIUM 40 MG/VIAL IV SCH ×2 (09:25→20:51)
[2023-02-10] MEDS: RISPERIDONE 0.25MG TABLET PO SCH (09:25)
[2023-02-10] MEDS: FERROUS SULFATE 325MG TABLET PO SCH ×3 (09:25→18:48)
[2023-02-10] MEDS: LOSARTAN POTASSIUM 100 MG TABLET PO SCH (09:26)
[2023-02-10] MEDS: CEFTRIAXONE 1,000 MG in DEXTROSE 5% WATER 50 ML IV SCH (18:31)
[2023-02-10] MEDS: SENNOSIDES/DOCUSATE SOD 8.6/50MG TABLET PO SCH (20:51)
[2023-02-11] VITALS (12 sets, daily range): BP systolic 99–127; BP diastolic 51–73
[2023-02-11] MEDS: BLOOD SUGAR DIAGNOSTIC STRIP TEST SCH ×4 (05:22→23:10)
[2023-02-11] MEDS: HYDRALAZINE HCL 100MG TABLET PO SCH ×3 (05:27→21:16)
[2023-02-11] MEDS: CLONIDINE 0.2MG TABLET PO SCH ×3 (05:28→21:19)
[2023-02-11] MEDS: INSULIN LISPRO 100 UNITS/ML SUBCUT SCH ×4 (05:28→23:20)
[2023-02-11] MEDS: RISPERIDONE 0.25MG TABLET PO SCH (08:40)
[2023-02-11] MEDS: LOSARTAN POTASSIUM 100 MG TABLET PO SCH (08:40)
[2023-02-11] MEDS: FERROUS SULFATE 325MG TABLET PO SCH ×3 (08:40→17:45)
[2023-02-11] MEDS: LEVETIRACETAM 500MG/5ML CUP PO SCH ×2 (08:40→21:15)
[2023-02-11] MEDS: PANTOPRAZOLE SODIUM 40 MG/VIAL IV SCH ×2 (08:40→21:15)
[2023-02-11] MEDS: CEFTRIAXONE 1,000 MG in DEXTROSE 5% WATER 50 ML IV SCH (14:17)
[2023-02-11] MEDS: SENNOSIDES/DOCUSATE SOD 8.6/50MG TABLET PO SCH (21:15)
[2023-02-12] VITALS (7 sets, daily range): BP systolic 94–129; BP diastolic 56–67
[2023-02-12] MEDS: BLOOD SUGAR DIAGNOSTIC STRIP TEST SCH ×2 (05:10→12:25)
[2023-02-12] MEDS: CLONIDINE 0.2MG TABLET PO SCH ×2 (05:10→13:30)
[2023-02-12] MEDS: HYDRALAZINE HCL 100MG TABLET PO SCH ×2 (05:10→13:30)
[2023-02-12] MEDS: INSULIN LISPRO 100 UNITS/ML SUBCUT SCH ×2 (05:23→12:00)
[2023-02-12] MEDS: LEVETIRACETAM 500MG/5ML CUP PO SCH (08:27)
[2023-02-12] MEDS: PANTOPRAZOLE SODIUM 40 MG/VIAL IV SCH (08:28)
[2023-02-12] MEDS: FERROUS SULFATE 325MG TABLET PO SCH ×2 (08:28→12:31)
[2023-02-12] MEDS: LOSARTAN POTASSIUM 100 MG TABLET PO SCH (08:28)
[2023-02-12] MEDS: RISPERIDONE 0.25MG TABLET PO SCH (08:28)
[2023-02-12] MEDS: CEFTRIAXONE 1,000 MG in DEXTROSE 5% WATER 50 ML IV SCH (12:31)
== END 2023-02-12 16:07 | DRG 3 ==
LOC: ER 12:03 → EDBEDREQ 14:37 → EDBEDREQTM 14:37 → ER 16:16 → MICUSO 19:23 → MICUNO 01-28 20:29 → 5EST 01-29 22:50
PROVIDERS: ADMIT Neurological Surgery; ATTEND Internal Medicine Pulmonary Disease
PROC: 00H032Z Insertion of Monitoring Device into Brain, Percutaneous Approach (ICD-10-PCS; principal; 2023-01-20)
PROC: 009700Z Drainage of Cerebral Hemisphere with Drainage Device, Open Approach (ICD-10-PCS; 2023-01-20)
PROC: 5A1955Z Respiratory Ventilation, Greater than 96 Consecutive Hours (ICD-10-PCS; 2023-01-20)
PROC: 0BH17EZ Insertion of Endotracheal Airway into Trachea, Via Natural or Artificial Opening (ICD-10-PCS; 2023-01-20)
PROC: 0NR00JZ Replacement of Skull with Synthetic Substitute, Open Approach (ICD-10-PCS; 2023-01-20)
PROC: 4A103BD Monitoring of Intracranial Pressure, Percutaneous Approach (ICD-10-PCS; 2023-01-20)
PROC: 0B110F4 Bypass Trachea to Cutaneous with Tracheostomy Device, Open Approach (ICD-10-PCS; 2023-01-28)
PROC: 0DH63UZ Insertion of Feeding Device into Stomach, Percutaneous Approach (ICD-10-PCS; 2023-01-29)
PROC: 02HV33Z Insertion of Infusion Device into Superior Vena Cava, Percutaneous Approach (ICD-10-PCS; 2023-02-11)
PROC: B548ZZA Ultrasonography of Superior Vena Cava, Guidance (ICD-10-PCS; 2023-02-11)
DX: I61.1 Nontraumatic intracerebral hemorrhage in hemisphere, cortical (principal); G93.6 Cerebral edema; J69.0 Pneumonitis due to inhalation of food and vomit; J96.00 Acute respiratory failure, unspecified whether with hypoxia or hypercapnia; G82.50 Quadriplegia, unspecified; G93.40 Encephalopathy, unspecified; Z99.11 Dependence on respirator [ventilator] status; N39.0 Urinary tract infection, site not specified; R40.20 Unspecified coma; E87.6 Hypokalemia; D72.825 Bandemia; I10 Essential (primary) hypertension; D50.9 Iron deficiency anemia, unspecified; E78.5 Hyperlipidemia, unspecified; R13.12 Dysphagia, oropharyngeal phase; Z20.822 Contact with and (suspected) exposure to COVID-19; J45.909 Unspecified asthma, uncomplicated; R73.9 Hyperglycemia, unspecified; Y92.009 Unspecified place in unspecified non-institutional (private) residence as the place of occurrence of the external cause; Z86.73 Personal history of transient ischemic attack (TIA), and cerebral infarction without residual deficits
CPT/HCPCS: 31500; 36415; 36573; 36600; 71045; 74176; 76700; 80048; 80053; 80076; 80307; 80320; 80329; 81003; 82140; 82248; 82270; 82375; 82607; 82728; 82746; 82805; 82962; 83036; 83540; 83550; 84443; 84478; 84484; 85025; 85027; 85044; 86705; 86709; 86803; 86850; 86900; 87070; 87077; 87186; 87340; 87426; 93005; 94002; 94003; 99291; A6261; C1725; C9113; J0690; J0696; J1100; J1580; J1815; J1953; J2250; J2270; J2370; J2405; J2543; J2704; J3010; J3480; J3490; J7050; J7060; J7120; J7121; Q9967; C1713; G0480